=== PATIENT | female | born 1960 | race Caucasian/White ===

== ENCOUNTER 2016-09-24 02:21 | Inpatient (IN) | payer OTHER ==
[~2016-09-24] VITALS: Ht 1341.1 cm; Wt 44.4 kg
[~2016-09-24 02:21] MED LIST: ALBUTEROL SULF8.5 GM IH; ALDACTONE25 MG PO; Bentyl PO; CATAPRES0.1 MG PO; COLCRYS0.6 MG PO; Colchicine,Colcrys PO; DRISDOL50000 UNIT PO; ENDOCET 5-3251 EACH PO; INDOCIN50 MG PO; INDOMETHACIN25 MG PO; K-DUR20 MEQ PO; KEFLEX500 MG PO; NAPROSYN-EC 37375 MG PO; NAPROSYN375 MG PO; NAPROSYN500 MG PO; NAPROXEN375 MG PO; NOHOMEMEDS; NORCO 5/3251 TABLET PO; OXYCODONE HCL5 M1 PO; PERCOCET 5/31 TABLET PO; PRILOSEC40 MG PO; PRINIVIL5 MG PO; PROTONIX40 MG PO; SPIRONOLACTONE25 MG PO; TRAMADOL HCL50 MG PO; ULTRAM50 MG PO; VOLTAREN75 MG PO; Vibramycin, Doryx PO; XIFAXAN550 MG PO; predniSONE PO
[2016-09-24 03:02] LABS: HEMATOCRIT 35.1 % (36.0-46.0); MCHC 34.8 G/DL (30.0-36.0); MCV 86.2 FL (83-99); RBC DIS.WIDTH-SD 47.3 % (39-53); RED BLOOD COUNT 4.07 M/uL (3.80-5.20)
[2016-09-24 03:08] LABS: ADD MIUA? YES; BILIRUBIN NEGATIVE; BLOOD SMALL; COLOR STRAW ((YELLOW)); GLUCOSE (STRIP) NEGATIVE; KETONES NEGATIVE; LEUKOCYTES TRACE; NITRITE NEGATIVE; PROTEIN (STRIP) NEGATIVE; SPECIFIC GRAVITY 1.002 (1.000-1.030); UROBILINOGEN 0.2 MG/DL (0.2-1.0)
[2016-09-24 03:11] LABS: BACTERIA NONE SEEN /HPF; EPITHELIAL CELLS RARE /HPF; MUCUS NONE SEEN /LPF; RED BLOOD CELLS 0-5 /HPF (0-5); UCUL ADDED? NO; WHITE BLOOD CELLS 0-5 /HPF (0-5)
[2016-09-24 03:14] LABS: CHLORIDE 103 mEq/L (99-109); POTASSIUM 3.3 mEq/L (3.7-5.4); SODIUM 134 mEq/L (136-147)
[2016-09-24 03:16] LABS: GLUCOSE 118 mg/dL (70-99)
[2016-09-24 03:17] LABS: ANION GAP 10 MEQ/L (2-14)
[2016-09-24 03:18] LABS: TOTAL BILIRUBIN 1.7 mg/dL (0.0-1.0)
[2016-09-24 03:19] LABS: ALKALINE PHOSPHATASE 94 IU/L (3-129)
[2016-09-24 03:20] LABS: GFR ESTIMATE (CALCULATED) > 59 mL/min/
[2016-09-24 03:21] LABS: DIRECT BILIRUBIN 0.7 mg/dL (0.0-0.3); UREA NITROGEN (BUN) 11 mg/dL (9-23)
[2016-09-24 03:23] LABS: LIPASE 24 U/L (1.0-51.0)
[2016-09-24 03:53] LABS: MEAN PLAT.VOLUME 10.5 uM^3 (9.5-12.4); PLAT.SUFFICIENCY ADEQUATE; PLATELET COUNT 364 K/uL (156-360)
[2016-09-24 05:33] LABS: AMYLASE 46 IU/L (1-118)
[2016-09-24 07:43] LABS: HEMATOCRIT 33.9 % (36.0-46.0); MCH 29.5 PG (29.0-34.0); MCHC 33.9 G/DL (30.0-36.0); MCV 86.9 FL (83-99); MEAN PLAT.VOLUME 10.3 uM^3 (9.5-12.4); PLATELET COUNT 345 K/uL (156-360); RBC DIS.WIDTH-SD 48.1 % (39-53); WHITE BLOOD COUNT 11.4 K/uL (4.1-10.2)
[2016-09-24 07:51] LABS: CHLORIDE 109 mEq/L (99-109); POTASSIUM 3.4 mEq/L (3.7-5.4)
[2016-09-24 07:52] LABS: SODIUM 137 mEq/L (136-147)
[2016-09-24 07:54] LABS: GLUCOSE 112 mg/dL (70-99)
[2016-09-24 07:55] LABS: ANION GAP 6 MEQ/L (2-14)
[2016-09-24 07:56] LABS: TOTAL BILIRUBIN 1.5 mg/dL (0.0-1.0)
[2016-09-24 07:57] LABS: ALKALINE PHOSPHATASE 90 IU/L (3-129); GFR ESTIMATE (CALCULATED) > 59 mL/min/
[2016-09-24 07:59] LABS: UREA NITROGEN (BUN) 7 mg/dL (9-23)
[2016-09-24 08:00] LABS: URIC ACID 4.1 mg/dL (3.1-9.2)
[2016-09-24 12:22] VITALS: BP 167/77
[2016-09-24 14:04] VITALS: BP 116/63
[2016-09-24 16:03] VITALS: BP 120/59
[2016-09-24 20:16] VITALS: BP 99/50
[2016-09-25 01:00] VITALS: BP 110/60
[2016-09-25 03:32] VITALS: BP 105/52
[2016-09-25 08:13] VITALS: BP 126/61
[2016-09-25 11:54] VITALS: BP 120/58
[2016-09-25 15:59] VITALS: BP 122/60
[2016-09-25 19:13] VITALS: BP 139/66
[2016-09-26 00:18] VITALS: BP 123/63
[2016-09-26 06:43] LABS: BASOPHIL COUNT 0.1 K/uL (0-0.1); EOSINOPHIL COUNT 0.5 K/uL (0-0.3); HEMATOCRIT 33.2 % (36.0-46.0); IMMATURE GRANULOCYTE (%) 0.2 % (0.0-0.7); INSTRUMENT ABS NEUTROPHIL CT 4.3 K/uL; LYMPHOCYTE COUNT 2.5 K/uL (1.0-2.8); MCHC 33.4 G/DL (30.0-36.0); MCV 89.7 FL (83-99); MEAN PLAT.VOLUME 11.2 uM^3 (9.5-12.4); MONOCYTE (%) 12.2 % (3-12); NEUTROPHIL (%) 51.1 % (45-76); NEUTROPHIL COUNT 4.3 K/uL (1.8-6.4); PLATELET COUNT 378 K/uL (156-360); RBC DIS.WIDTH-CV 15.7 % (11.8-14.6); RBC DIS.WIDTH-SD 51.2 % (39-53); WHITE BLOOD COUNT 8.3 K/uL (4.1-10.2)
[2016-09-26 07:28] LABS: ALKALINE PHOSPHATASE 81 IU/L (3-129); ANION GAP 8 MEQ/L (2-14); CHLORIDE 112 MEQ/L (99-109); GFR ESTIMATE (CALCULATED) > 59 mL/min/; GLUCOSE 106 mg/dL (70-99); SAMPLE HEMOLYSIS CHECK 0; SAMPLE ICTERIC CHECK 0; SAMPLE LIPEMIA CHECK 0; SODIUM 139 MEQ/L (136-147); TOTAL BILIRUBIN 0.4 MG/DL (0.0-1.0); UREA NITROGEN (BUN) 9 mg/dL (9-23)
[2016-09-26 07:31] LABS: POTASSIUM 4.1 MEQ/L (3.7-5.4)
[2016-09-26 08:13] VITALS: BP 137/63
[2016-09-26 16:11] VITALS: BP 146/63
[2016-09-26 20:54] VITALS: BP 140/68
== END 2016-09-26 21:00 | disposition home or self-care (01) | DRG 392 ==
LOC: EME 02:21 → EDOF 05:17 → 3EAST 11:56
PROVIDERS: Emergency Medicine; Internal Medicine
DX: R10.9 Unspecified abdominal pain (principal); R50.9 Fever, unspecified; E87.1 Hypo-osmolality and hyponatremia; E87.6 Hypokalemia; D64.9 Anemia, unspecified; K76.6 Portal hypertension; K21.9 Gastro-esophageal reflux disease without esophagitis; K74.60 Unspecified cirrhosis of liver; I10 Essential (primary) hypertension; I85.00 Esophageal varices without bleeding; M19.90 Unspecified osteoarthritis, unspecified site; Z90.81 Acquired absence of spleen
CPT/HCPCS: 74176; 80048; 80053; 80076; 81003; 82150; 83605; 83690; 84550; 85025; 85027; 87040; 87086; 99281; 99285; J0696; J2270; J3480; J7030; J7050

== ENCOUNTER 2017-01-13 03:42 | Emergency (ER) | payer OTHER ==
[~2017-01-13] VITALS: Ht 134.6 cm; Wt 49.9 kg
[2017-01-13 04:36] LABS: BASOPHIL COUNT 0.1 K/uL (0-0.1); EOSINOPHIL (%) 4.5 % (0-5); EOSINOPHIL COUNT 0.4 K/uL (0-0.3); HEMATOCRIT 37.5 % (36.0-46.0); IMMATURE GRANULOCYTE (%) 0.3 % (0.0-0.7); LYMPHOCYTE COUNT 3.1 K/uL (1.0-2.8); MCH 28.4 PG (29.0-34.0); MCHC 33.1 G/DL (30.0-36.0); MEAN PLAT.VOLUME 10.6 uM^3 (9.5-12.4); MONOCYTE (%) 17.7 % (3-12); MONOCYTE COUNT 1.4 K/uL (0-0.8); NEUTROPHIL (%) 38.1 % (45-76); PLATELET COUNT 323 K/uL (156-360); RBC DIS.WIDTH-CV 15.6 % (11.8-14.6); RED BLOOD COUNT 4.36 M/uL (3.80-5.20); WHITE BLOOD COUNT 7.9 K/uL (4.1-10.2)
[2017-01-13 04:47] LABS: CHLORIDE 106 mEq/L (99-109); POTASSIUM 3.3 mEq/L (3.7-5.4); SODIUM 138 mEq/L (136-147)
[2017-01-13 04:49] LABS: GLUCOSE 122 mg/dL (70-99)
[2017-01-13 04:50] LABS: ANION GAP 8 MEQ/L (2-14)
[2017-01-13 04:51] LABS: TOTAL BILIRUBIN 0.5 mg/dL (0.0-1.0)
[2017-01-13 04:52] LABS: ALKALINE PHOSPHATASE 95 IU/L (3-129); GFR ESTIMATE (CALCULATED) > 59 mL/min/
[2017-01-13 04:54] LABS: UREA NITROGEN (BUN) 12 mg/dL (9-23)
[2017-01-13 04:56] LABS: TROP-I INTERPRETATION NEGATIVE; TROPONIN-I < 0.01 ng/mL (0.0-0.30)
[2017-01-13] MEDS ORDERED: PERCOCET 5/31 TABLET PO (05:43)
[2017-01-13] MEDS ORDERED: FLEXERIL10 MG PO (05:43)
[2017-01-13 06:10] VITALS: BP 140/94
== END 2017-01-13 06:12 | disposition home or self-care (01) ==
LOC: EME 03:42
PROVIDERS: Physician Assistant
DX: M54.6 Pain in thoracic spine (principal); R07.81 Pleurodynia; R09.1 Pleurisy; I10 Essential (primary) hypertension; K21.9 Gastro-esophageal reflux disease without esophagitis; K74.60 Unspecified cirrhosis of liver; I08.1 Rheumatic disorders of both mitral and tricuspid valves; Z90.49 Acquired absence of other specified parts of digestive tract; Z90.81 Acquired absence of spleen
CPT/HCPCS: 71020; 80053; 81003; 84484; 85025; 93005; 99281; 99284

== ENCOUNTER 2017-09-17 05:13 | Inpatient (IN) | payer OTHER ==
[~2017-09-17] VITALS: Ht 152.4 cm; Wt 52.2 kg
[~2017-09-17 05:13] MED LIST changes: +FLEXERIL10 MG PO
[2017-09-17 05:41] LABS: HEMATOCRIT 33.8 % (36.0-46.0); MCH 30.8 PG (29.0-34.0); MCHC 35.5 G/DL (30.0-36.0); MCV 86.7 FL (83-99); RBC DIS.WIDTH-CV 15.7 % (11.8-14.6); RBC DIS.WIDTH-SD 49.7 % (39-53)
[2017-09-17 05:51] LABS: ALBUMIN 3.5 g/dL (3.2-4.8); CHLORIDE 102 mEq/L (99-109); POTASSIUM 3.5 mEq/L (3.7-5.4); SODIUM 136 mEq/L (136-147)
[2017-09-17 05:53] LABS: GLUCOSE 122 mg/dL (70-99)
[2017-09-17 05:54] LABS: TOTAL PROTEIN 7.2 g/dL (6.4-8.3)
[2017-09-17 05:55] LABS: TOTAL BILIRUBIN 0.9 mg/dL (0.0-1.0)
[2017-09-17 05:57] LABS: ALKALINE PHOSPHATASE 92 IU/L (3-129); CREATININE 0.9 mg/dL (0.6-1.3); GFR ESTIMATE (CALCULATED) > 59 mL/min/
[2017-09-17 05:58] LABS: UREA NITROGEN (BUN) 17 mg/dL (9-23)
[2017-09-17 05:59] LABS: AST (GOT) 52 IU/L (2-34)
[2017-09-17 06:00] LABS: ALT (GPT) 25 IU/L (3-49); LIPASE 27 U/L (1.0-51.0)
[2017-09-17 06:23] LABS: APPEARANCE SL.HAZY ((CLEAR)); BILIRUBIN NEGATIVE; BLOOD SMALL; COLOR YELLOW ((YELLOW)); GLUCOSE (STRIP) NEGATIVE; KETONES NEGATIVE; LEUKOCYTES LARGE; NITRITE NEGATIVE; PROTEIN (STRIP) NEGATIVE; SPECIFIC GRAVITY 1.011 (1.000-1.030); UROBILINOGEN 0.2 MG/DL (0.2-1.0)
[2017-09-17 06:26] LABS: BACTERIA RARE /HPF; EPITHELIAL CELLS RARE /HPF; HYALINE CASTS 30-40 /LPF; MUCUS TRACE /LPF; UCUL ADDED? YES; WHITE BLOOD CELLS TNTC /HPF (0-5)
[2017-09-17 06:45] LABS: PLAT.SUFFICIENCY ADEQUATE; PLATELET COUNT 263 K/uL (156-360)
[2017-09-17] MEDS ORDERED: MITIGARE0.6 MG PO (07:50)
[2017-09-17 11:53] VITALS: BP 141/65
[2017-09-17 16:11] VITALS: BP 145/81
[2017-09-17 20:32] VITALS: BP 146/68
[2017-09-18 00:36] VITALS: BP 131/65
[2017-09-18 07:20] VITALS: BP 134/66
[2017-09-18 15:31] VITALS: BP 104/55
[2017-09-18 23:25] VITALS: BP 130/63
[2017-09-19 06:15] LABS: HEMOGLOBIN 10.4 G/DL (11.9-15.5); MCH 29.5 PG (29.0-34.0); MCHC 33.5 G/DL (30.0-36.0); MCV 88.1 FL (83-99); PLATELET COUNT 240 K/uL (156-360); RBC DIS.WIDTH-SD 51.9 % (39-53); RED BLOOD COUNT 3.52 M/uL (3.80-5.20); WHITE BLOOD COUNT 11.9 K/uL (4.1-10.2)
[2017-09-19 06:36] LABS: CHLORIDE 110 MEQ/L (99-109); CREATININE 0.5 MG/DL (0.6-1.3); GFR ESTIMATE (CALCULATED) > 59 mL/min/; GLUCOSE 112 mg/dL (70-99); POTASSIUM 3.9 MEQ/L (3.7-5.4); SODIUM 139 MEQ/L (136-147); UREA NITROGEN (BUN) 11 mg/dL (9-23)
[2017-09-19 06:58] VITALS: BP 128/63
[2017-09-19] MEDS ORDERED: Colchicine,Colcrys PO (14:25)
[2017-09-19 15:21] VITALS: BP 148/68
== END 2017-09-19 16:10 | disposition home or self-care (01) | DRG 546 ==
LOC: EME 05:13 → EDOF 09:00 → 5EAST 09:00 → ENRESERV 09:25 → 5EAST 11:45
PROVIDERS: Emergency Medicine; Internal Medicine
DX: M04.1 Periodic fever syndromes (principal); N39.0 Urinary tract infection, site not specified; D72.829 Elevated white blood cell count, unspecified; I10 Essential (primary) hypertension; Z91.09 Other allergy status, other than to drugs and biological substances; E87.6 Hypokalemia; D64.9 Anemia, unspecified; K74.60 Unspecified cirrhosis of liver; E55.9 Vitamin D deficiency, unspecified; M19.90 Unspecified osteoarthritis, unspecified site; K76.6 Portal hypertension; I85.00 Esophageal varices without bleeding; Z87.440 Personal history of urinary (tract) infections; Z87.01 Personal history of pneumonia (recurrent); Z90.81 Acquired absence of spleen; Z90.49 Acquired absence of other specified parts of digestive tract
CPT/HCPCS: 71046; 74176; 80048; 80053; 81003; 83605; 83690; 85027; 87040; 87086; 99281; 99284; J0696; J3480